=== PATIENT | male | born 1965 | race Caucasian/White ===

== ENCOUNTER 2017-01-10 12:02 | Emergency (ER) | payer BC ==
[2017-01-10 12:14] VITALS: BP 125/69
[2017-01-10] MEDS ORDERED: Bacitracin Oint 1 GM U/D Packet TOP ONE (12:35)
[2017-01-10] MEDS ORDERED: Lidocaine 1% 20 ML MDV INJECT ONE (12:35)
[2017-01-10] MEDS ORDERED: ceFAZolin 2 GM in Premix Bag 1 BAG IV ONE (13:03)
--- NOTE | 2017-01-10 13:21 | EDM.PDOC ---
[id number] WRIST LACERATION Time Seen by Provider: 01/10/17 12:15 Source: Reports: Patient History Limitations: Reports: No limitations - History of Present Illness INITIAL COMMENTS - FREE TEXT/NARRATIVE: 51-year-old male in with the left hand and wrist injury. He was working in a garage door when a very powerful spring let loose and struck his left hand and left wrist. He has a laceration to the left thenar area of the thumb, and a very deep laceration across the flexor surface of the wrist. Bleeding is controlled. He denies any distal weakness or numbness. He is otherwise healthy , his tetanus is current. Timing: Reports: still present Severity: moderate - Related Data Allergies Allergy/AdvReac Type Severity Reaction Status Date / Time No Known Allergies Allergy Verified 01/10/17 12:07 Home Meds: Ambulatory Orders Medication Instructions Recorded Confirmed NK [No Known Home Meds] 01/10/17 01/10/17 Past Medical History - Past Health History Medical/Surgical History: Denies Medical/Surgical History Social & Family History - Tobacco Use Smoking Status *Q: Never Smoker - Caffeine Use Caffeine Use: Reports: Coffee - Alcohol Use Days Per Week of Alcohol Use: 2 Number of Drinks Per Day: 7 Total Drinks Per Week: 14 - Recreational Drug Use Recreational Drug Use: No ED ROS GENERAL - Review of Systems Review Of Systems: ROS reveals no pertinent complaints other than HPI. ED EXAM, SKIN/RASH Exam: See Below General Appearance: alert Respiratory/Chest: no respiratory distress Extremities: other (Exam otherwise limited to the forearm and hand. The patient has a laceration extending through the thenar area of the palmar thumb approximately 5 cm in length. He has a transverse deeper laceration across the wrist somewhat angled also 5 cm. The initial exam of the fingers reveals full- strength, range of motion and good circulation.) Course - Vital Signs Last Recorded V/S: Last Vital Signs Temp 97.8 F 01/10/17 12:06 Pulse 50 L 01/10/17 12:06 Resp 12 01/10/17 12:06 BP 125/69 01/10/17 12:06 Pulse Ox 97 01/10/17 12:06 - Orders/Labs/Meds Meds: Medications Discontinued Medications Generic Name Dose Route Start Last Admin Trade Name Freq PRN Reason Stop Dose Admin Bacitracin 1 dose 01/10/17 12:35 01/10/17 13:12 Bacitracin Oint 1 Gm TOP 01/10/17 12:36 1 dose ONETIME ONE Administration Cefazolin Sodium/Dextrose 2 gm 50 mls @ 100 mls/hr 01/10/17 13:03 01/10/17 13 :12 / Premix IV 01/10/17 13:32 100 mls/hr ONETIME ONE Administration Lidocaine HCl 20 ml 01/10/17 12:35 01/10/17 13:12 Xylocaine 1% INJECT 01/10/17 12:36 20 ml ONETIME ONE Administration - Re-Assessments/Exams Free Text/Narrative Re-Assessment/Exam: 01/11/17 10:41 While cleaning the wounds a small bone fragment was found in the wrist laceration followed by a larger displaced fracture fragment. An x-ray of the wrist followed after rough closure of the wounds which revealed a dislocated fracture of the distal radial scaphoid. Patient was given 2 g of Ancef IV, placed in a volar wrist splint and hand surgery was consulted in [place]. 4 sutures were also placed in the thumb laceration for closure. Patient will see Dr. Lawrence tomorrow in [place] for definitive care. Departure - Departure Time of Disposition: 14:58 Disposition: Home, Self-Care 01 Condition: good Clinical Impression: Open wrist fracture Qualifiers: Encounter type: initial encounter Laterality: left Qualified Code(s): S62.102B - Fracture of unspecified carpal bone, left wrist, initial encounter for open fracture Instructions: Wrist Fracture Treated With Immobilization, [id number] Referrals: PCP,None [Primary Care Provider] - Forms: ED Department Discharge Care Plan Goals: Take antibiotic 3 times daily, ibuprofen or naproxen and add stronger pain medications as prescribed if needed. You should be getting a call later today from the hand surgeon for further instructions. Wear splint until rechecked.
--- NOTE | 2017-01-11 10:31 | CR ---
Wrist Comp Min 3V Lt HISTORY: Trauma COMPARISON: None FINDINGS: Fracture from the scaphoid at its distal medial aspect . This is displaced approximately 1 centimeter with rotation of the fracture fragment. The fracture fragment measures 1 cm. The other c arpal bones appear intact. Impression: Significantly displaced fracture of the distal scaphoid with rotation.
== END 2017-01-10 14:58 | disposition home or self-care (01) ==
LOC: JP.ED 12:02
DX: S62.102B Fracture of unspecified carpal bone, left wrist, initial encounter for open fracture (principal); W22.8XXA Striking against or struck by other objects, initial encounter
CPT/HCPCS: 12002; 29125; 73110; 96365; 99284; A4217; J0690

== ENCOUNTER 2022-05-09 16:26 | Emergency (ER) | payer BC ==
[2022-05-09 17:45] LABS: ESTIMATED GFR 70 mL/min (>60); TROPONIN I HIGH SENSITIVITY 5.7 pg/mL (<=60.3)
[2022-05-09 17:58] VITALS: BP 153/91; PULSE 62
== END 2022-05-09 18:18 | disposition home or self-care (01) ==
LOC: JP.ED 16:26
DX: R55 Syncope and collapse (principal); I11.0 Hypertensive heart disease with heart failure; I50.9 Heart failure, unspecified; E78.00 Pure hypercholesterolemia, unspecified; Z79.82 Long term (current) use of aspirin; Z79.899 Other long term (current) drug therapy; Z87.891 Personal history of nicotine dependence
CPT/HCPCS: 36415; 80053; 84484; 85025; 93005; 93010; 99284